=== PATIENT | male | born 1995 | race American Indian/Alaskan Native ===

== ENCOUNTER 2022-03-22 21:39 | Emergency (ER) | payer BC ==
[2022-03-23] MEDS ORDERED: ONDANSETRON 4 MG ODT TAB PO STA (04:20)
--- NOTE | 2022-03-23 04:30 | Emergency Department Report ---
- General Chief complaint: Animal Bite Stated complaint: SPIDER BITE Time Seen by Provider: 03/23/22 03:53 Source: patient Mode of arrival: Ambulatory Limitations: No Limitations - History of Present Illness Initial comments: 26-year-old male is emerged followed complaining of a 2 to 3-week history of wound to his right rib area which he thinks secondary to a spider bite. Area w as swollen with some some direct induration had copious amount of pus discharge when he opened the wound a few days ago. He was initially prescribed some Bactrim but is unable to tolerate the medication presents emergency department seeking alternative treatment and wound reevaluation. Currently pain is dull and throbbing worse with palpation and range of motion. Reports no hemoptysis hematemesis hematochezia, no fever, chills, sweats. MD complaint: insect bite/sting, abscess/boil Tetanus Up to Date: yes Severity: mild Quality: dull Consistency: constant Improves with: none Worsens with: none Context: none - Related Data Previous Rx's Medication Instructions Recorded Last Taken Type Chlorhexidine Gluconate [Hibiclens] 10 ml TP BID #240 liquid 03/23/22 Unknown Rx Clindamycin [Clindamycin CAP] 150 mg PO Q8HR #21 capsule 03/23/22 Unknown Rx Allergies Allergy/AdvReac Type Severity Reaction Status Date / Time No Known Allergies Allergy Verified 03/22/22 23:19 Abscess Boil HPI - HPI Chief Complaint: Animal Bite Stated Complaint: SPIDER BITE Time Seen by Provider: 03/23/22 03:53 Home Medications: Previous Rx's Medication Instructions Recorded Last Taken Type Chlorhexidine Gluconate [Hibiclens] 10 ml TP BID #240 liquid 03/23/22 Unknown Rx Clindamycin [Clindamycin CAP] 150 mg PO Q8HR #21 capsule 03/23/22 Unknown Rx Allergies/Adverse Reactions: Allergies Allergy/AdvReac Type Severity Reaction Status Date / Time No Known Allergies Allergy Verified 03/22/22 23:19 ED Review of Systems ROS: Stated complaint: SPIDER BITE Other details as noted in HPI Comment: All other systems reviewed and negative ED Past Medical Hx - Past Medical History Previous Medical History?: No - Surgical History Past Surgical History?: No - Social History Smoking Status: Never Smoker Substance Use Type: None - Medications Home Medications: Home Medications Medication Instructions Recorded Confirmed Last Taken Type Chlorhexidine Gluconate [Hibiclens] 10 ml TP BID #240 liquid 03/23/22 Unknown Rx Clindamycin [Clindamycin CAP] 150 mg PO Q8HR #21 capsule 03/23/22 Unknown Rx ED Physical Exam - General Limitations: No Limitations General appearance: alert, in no apparent distress - Head Head exam: Present: atraumatic, normocephalic - Eye Eye exam: Present: normal appearance - ENT ENT exam: Present: mucous membranes moist - Neck Neck exam: Present: normal inspection - Respiratory Respiratory exam: Present: normal lung sounds bilaterally. Absent: respiratory distress - Cardiovascular Cardiovascular Exam: Present: regular rate, normal rhythm. Absent: systolic murmur, diastolic murmur, rubs, gallop - GI/Abdominal GI/Abdominal exam: Present: soft, normal bowel sounds - Rectal Rectal exam: Present: deferred - Extremities Exam Extremities exam: Present: normal inspection - Back Exam Back exam: Present: normal inspection - Neurological Exam Neurological exam: Present: alert, oriented X3 - Psychiatric Psychiatric exam: Present: normal affect, normal mood - Skin Skin exam: Present: warm, dry, intact, normal color, erythema, ecchymosis. Absent: rash - Expanded Skin Exam Expanded 1 - Nickel sized area of induration. No fluctuance. No mild local cellulitis is noted. No lymphangitis is present. No subcutaneous emphysema. No wound discharge with expression. ED Course Vital Signs 03/22/22 23:15 Temperature 98.5 F Pulse Rate 66 Respiratory 18 Rate Blood Pressure 117/48 O2 Sat by Pulse 95 Oximetry Critical care attestation.: If time is entered above; I have spent that time in minutes in the direct care of this critically ill patient, excluding procedure time. ED Disposition Clinical Impression: Wound infection Disposition: 01 HOME / SELF CARE / HOMELESS Is pt being admited?: No Does the pt Need Aspirin: No Condition: Stable Instructions: Wound Care, Adult Prescriptions: Clindamycin [Clindamycin CAP] 150 mg PO Q8HR #21 capsule Chlorhexidine Gluconate [Hibiclens] 10 ml TP BID #240 liquid Referrals: JONNATHAN YANG MD [Primary Care Provider] - 3-5 Days
[2022-03-23 04:35] LABS: Eosinophils # (Auto) 0.6 K/mm3 (0.0-0.4); Eosinophils % (Auto) 13.3 % (0.0-4.3); Hematocrit 41.5 % (35.5-45.6); Lymphocytes # (Auto) 1.6 K/mm3 (1.2-5.4); Mean Corpuscular HGB Conc 34 % (32-34); Mean Corpuscular Volume 86 fl (84-94); Monocytes # (Auto) 0.4 K/mm3 (0.0-0.8); Monocytes % (Auto) 9.3 % (0.0-7.3); Platelet Count 249 K/mm3 (140-440)
[2022-03-23 04:47] LABS: BUN/Creatinine Ratio 8; Blood Urea Nitrogen 8 mg/dL (9-20); Calcium 9.1 mg/dL (8.4-10.2); Hemolysis Index 7
[2022-03-23 06:08] VITALS: BP 122/52
== END 2022-03-23 06:08 | disposition home or self-care (01) ==
LOC: ED 21:39
DX: L08.9 Local infection of the skin and subcutaneous tissue, unspecified (principal)
CPT/HCPCS: 36415; 80048; 85025; 99283; J3490; Q0162